=== PATIENT | female | born 1950 ===

== ENCOUNTER → 2021-05-25 | Outpatient (CLI) | payer MEDICARE ==
[~2021-05-25] MED LIST: ALPR.25 PO; ATOR10 PO; Adult Low Dose81 MG PO; BIOTIN5 MG PO; BROMELAINS500 MG PO; CALCIUM PO; CARV3.125 PO; Calcium Magnes1 EACH PO; Coq-10100 MG PO; D3-20002000 UNIT PO; ENTRESTO 24 MG1 EACH PO; ESCI10 PO; Excedrin Extra1 EACH PO; FOLBIC RF TABL1 EACH PO; FURO40 PO; HYDR1TAB94 PO; Hair, Skin & N1 EACH PO; Hydrochlorothia25 MG PO; LORA1 PO; LOSA25 PO; LOSA50 PO; MEGA RED JOINT CARE PO; MELO7.5 PO; Multivitamin1 EAC1 PO; NAPR220 PO; Ocuvite Softge1 EAC1 PO; PROBIOTIC1 EAC1 PO; PROG100 PO; SPIR25 PO; VITAMIN B122500 MCG PO; Zantac150 MG PO
== END | disposition home or self-care (01) ==
LOC: LAB SHORT 11:40 → PLD 11:40
DX: D18.01 Hemangioma of skin and subcutaneous tissue (principal); L82.1 Other seborrheic keratosis
CPT/HCPCS: 88305

== ENCOUNTER → 2021-07-07 | Outpatient (CLI) | payer MEDICARE ==
[2021-07-08 13:48] LABS: Stool Occult Bld Immuno 1 Negative (NEGATIVE)
== END | disposition home or self-care (01) ==
LOC: LAB SHORT 12:10
PROVIDERS: Internal Medicine Gastroenterology
DX: Z09 Encounter for follow-up examination after completed treatment for conditions other than malignant neoplasm (principal); Z86.010 Personal history of colon polyps
CPT/HCPCS: 82274

== ENCOUNTER 2023-09-10 08:33 | Day surgery (SDC) | payer MEDICARE ==
[~2023-09-10] VITALS: Ht 165.1 cm; Wt 73.2 kg
[2023-09-10] MEDS ORDERED: OZEMPIC0.25 MG/02 (08:48)
[2023-09-10] MEDS ORDERED: MERIBIN5 MG (08:48)
[2023-09-10] MEDS ORDERED: PRAV20 (08:49)
[2023-09-10] MEDS ORDERED: ENTRESTO 24 MG1 EACH (08:49)
[2023-09-10 10:41] VITALS: BP 153/75
== END 2023-09-10 10:51 | disposition home or self-care (01) ==
LOC: ORSCSDS 08:33
DX: Z12.11 Encounter for screening for malignant neoplasm of colon (principal); D12.2 Benign neoplasm of ascending colon; D12.4 Benign neoplasm of descending colon; D12.0 Benign neoplasm of cecum; K57.30 Diverticulosis of large intestine without perforation or abscess without bleeding; K63.89 Other specified diseases of intestine; Z86.010 Personal history of colon polyps; I50.9 Heart failure, unspecified; Z95.0 Presence of cardiac pacemaker; Z79.82 Long term (current) use of aspirin; Z79.85 Long-term (current) use of injectable non-insulin antidiabetic drugs
CPT/HCPCS: 88305; J1980; J2704; J7120; Q9968

== ENCOUNTER 2023-10-05 10:19 | Emergency (ER) | payer MEDICARE ==
[~2023-10-05] VITALS: Ht 165.1 cm; Wt 72.6 kg
[~2023-10-05 10:19] MED LIST changes: +ENTRESTO 24 MG1 EACH; +MERIBIN5 MG; +OZEMPIC0.25 MG/02; +PRAV20
[2023-10-05 12:46] LABS: BASOPHILS ABSOLUTE AUTO 0.03 K/mm3 (0.00-0.23); BASOPHILS PERCENT AUTO 0 % (0-2); EOSINOPHILS ABSOLUTE AUTO 0.01 K/mm3 (0.00-0.68); EOSINOPHILS PERCENT AUTO 0 % (0-6); Hematocrit 40.2 % (33.0-51.0); IMMATURE GRAN ABSOLUTE AUTO 0.04 K/mm3 (0.00-0.10); IMMATURE GRAN PERCENT AUTO 0 % (0-1); LYMPHOCYTES PERCENT AUTO 5 % (21-46); MONOCYTES ABSOLUTE AUTO 0.61 K/mm3 (0.16-1.47); MONOCYTES PERCENT AUTO 5 % (4-13); Mean Corpuscular HGB 31.9 pg (26.0-34.0); Mean Corpuscular HGB Conc 32.3 g/dL (31.5-36.5); Mean Corpuscular Volume 99 fL (80-100); Mean Platelet Volume 9.6 fL (9.1-12.4); NEUTROPHILS ABSOLUTE AUTO 12.18 K/mm3 (1.96-9.15); NEUTROPHILS PERCENT AUTO 90 % (41-73); Platelet Count 235 K/mm3 (150-400); RDW Coefficient Variation 12.6 % (11.7-14.2); RDW Standard Deviation 45.7 fL (35.1-46.3); Red Blood Cell Count 4.08 M/mm3 (3.80-5.20); White Blood Cell Count 13.57 K/mm3 (4.00-11.30)
[2023-10-05 13:18] LABS: Bun/Creatinine Ratio 29.3 (12.0-20.0); Calcium, Blood 8.8 mg/dL (8.5-10.1); Creatinine, Blood 0.62 mg/dL (0.40-1.00); Potassium, Blood 3.1 mmol/L (3.5-5.5)
[2023-10-05 13:45] LABS: International Normalized Ratio 1.02; Prothrombin Time Results 10.7 Sec (9.7-11.5)
[2023-10-05 19:23] VITALS: BP 144/74
== END 2023-10-05 20:45 | disposition short-term general hospital (02) ==
LOC: ER 10:19
PROVIDERS: Student in an Organized Health Care Education/Training Program
DX: M97.11XA Periprosthetic fracture around internal prosthetic right knee joint, initial encounter (principal); W01.0XXA Fall on same level from slipping, tripping and stumbling without subsequent striking against object, initial encounter; Z88.5 Allergy status to narcotic agent; Z79.899 Other long term (current) drug therapy; Z79.82 Long term (current) use of aspirin; Z96.653 Presence of artificial knee joint, bilateral; Z95.0 Presence of cardiac pacemaker
CPT/HCPCS: 29505; 73552; 73560-RT; 73700; 80048; 85025; 85610; 85730; 86850; 86900; 86901; 96374-59; 96375-59; 96376-59; 99285-25; A9270; J1170; J2405; J7030

== ENCOUNTER → 2024-10-07 | Outpatient (CLI) | payer MEDICARE ==
[2024-10-07 12:04] LABS: Source, Urine Clean Catch
[2024-10-07 13:07] LABS: Appearance, Urine Clear (Clear); Bilirubin, Urine Neg (Neg); Blood, Urine 1+ (Neg); Color, Urine Yellow (P-Yellow); Glucose Qualitative, Urine Neg (Neg); Ketones, Urine Neg (Neg); Leukocyte Esterase, Urine 3+ (Neg); Nitrite, Urine Neg (Neg); Protein, Urine 1+ (Neg); Urobilinogen, Urine NORM (Normal)
[2024-10-07 13:35] LABS: Bacteria Few /hpf; Squamous Epithelial Cells Few /hpf (Few)
[2024-10-07 13:36] LABS: Transitional Epithelial Cells Rare /hpf (0-Rare)
== END ==
LOC: LAB 12:03 → LAB SHORT 12:03
PROVIDERS: Internal Medicine
DX: R30.0 Dysuria (principal)
CPT/HCPCS: 81001; 87086